=== PATIENT | female | born 1940 | race African-American/Black ===

== ENCOUNTER 2019-05-02 23:13 | Inpatient (IN) | payer MEDICARE ==
[~2019-05-02] VITALS: Ht 170.2 cm; Wt 59.0 kg
--- NOTE | 2019-05-02 23:55 | NUR ---
PT AMBULATED TO THE BATHROOM WITH A STEADY GAIT. PT IS TRYING TO GIVE A URINE SAMPLE. HAT WAS PLACED IN THE TOILET. FAMILY IS WITH THE PT.
--- NOTE | 2019-05-03 00:14 | NUR ---
SENIOR DATA SCIENTIST IS AT THE BEDSIDE FOR BLOOD DRAW. PT BECAME AGGRESSIVE. HILTON, GENIA AND MYSELF WERE AT THE BEDSIDE SUBDUING THE PT WHILE BLOOD DRAW WAS IN PROGRESS. PT BIT MY ARM, DID NOT BREAK THE SKIN BUT LEFT A BRUISE. PT CALMED DOWN AFTER THE INTIAL BUTTERFLY INSERTION.
[2019-05-03 00:18] LABS: BASOPHILS # (AUTO) 0.1 /CMM (0.0-0.2); BASOPHILS % (AUTO) 0.7 % (0.0-2.0); EOSINOPHILS % (AUTO) 1.6 % (0.0-6.0); HEMATOCRIT 46 % (33-45); HEMOGLOBIN 15.4 g/dL (11.5-14.8); LYMPHOCYTES # (AUTO) 3.2 /CMM (0.8-4.8); LYMPHOCYTES % (AUTO) 27.1 % (20.0-44.0); MEAN CORPUSCULAR HGB CONC 33 g/dl (31.0-36.0); MEAN CORPUSCULAR VOLUME 96 fL (82-100); MONOCYTES % (AUTO) 8.6 % (2.0-12.0); NEUTROPHILS # (AUTO) 7.3 /CMM (1.8-8.9); PLATELET COUNT (AUTO) 371 /CMM (150-450); RED BLOOD CELL COUNT(AUTO) 4.81 MIL/uL (4.0-5.2); WHITE BLOOD COUNT (AUTO) 11.8 K/uL (4.3-11.0)
--- NOTE | 2019-05-03 00:20 | NUR ---
CXR DONE AT THE BEDSIDE.
--- NOTE | 2019-05-03 00:22 | NUR ---
PT'S DAUGHTER IS AT THE BEDSIDE. PT APPEARS CALM.
[2019-05-03 00:31] LABS: APPEARANCE,URINE Slightly Cloudy (CLEAR); BILIRUBIN,URINE Negative (NEGATIVE); BLOOD, URINE Negative Ery/uL (NEGATIVE); COLOR,URINE Yellow (YELLOW); KETONES,URINE Trace (NEGATIVE); LEUKOCYTE ESTERASE ,URINE Trace (NEGATIVE); NITRITE, URINE Positive (NEGATIVE); PH,URINE 8.5 (5.0-8.0); PROTEIN,URINE Negative (NEGATIVE); UGLUCOSE Negative (NEGATIVE); UROBILINOGEN,URINE 0.2 EU/dL (0.2)
[2019-05-03 00:31] LABS: CALCIUM, SERUM 9.6 mg/dL (8.5-10.1); CARBON DIOXIDE 28 mmol/L (21-32); CHLORIDE 107 mmol/L (98-107); CREATININE 0.7 mg/dL (0.6-1.3); GLUCOSE 111 mg/dL (74-106); POTASSIUM 4.2 mmol/L (3.5-5.1); SODIUM SERUM 144 mmol/L (136-145); UREA NITROGEN, BLOOD 13 mg/dL (7-18)
[2019-05-03 00:37] LABS: ALANINE AMINOTRANSFERASE 17 U/L (12-78); ALBUMIN 3.7 g/dL (3.4-5.0); ALKALINE PHOSPHATASE 99 U/L (46-116); ASPARTATE AMINOTRANSFERASE 15 U/L (15-37); BILIRUBIN,DIRECT 0.1 mg/dL (0.0-0.2); BILIRUBIN,TOTAL 0.4 mg/dL (0.2-1.0); LIPASE 254 U/L (73-393); TOTAL PROTEIN, SERUM 7.6 g/dL (6.4-8.2)
--- NOTE | 2019-05-03 00:49 | NUR ---
DR VALVERDE IS SPEAKING TO THE PT'S DAUGHTER.
[2019-05-03 00:54] LABS: BACTERIA,URINE Many /HPF (None Seen); SQUAMOUS EPITHELIAL CELL,UR Few /HPF (None Seen)
[2019-05-03] MEDS ORDERED: CEFTRIAXONE 1 G VIAL ONE (00:54)
[2019-05-03] MEDS ORDERED: LIDOCAINE /MPF 1% VIAL 5 ML VIAL ONE (00:54)
[2019-05-03] MEDS ORDERED: CEFTRIAXONE 1 G VIAL IM ONE (01:00)
--- NOTE | 2019-05-03 01:06 | NUR ---
PT IS ON A HOLD OF 05/02/19 @0503
--- NOTE | 2019-05-03 01:09 | NUR ---
CALLING REPORT TO ROMY BOGGS RN.
--- NOTE | 2019-05-03 01:44 | NUR ---
GPS ADMISSION NOTE, RECEIVED PATIENT FROM ER / HOME. PATIENT ARRIVED ON THIS UNIT AT 0000 VIA STRETCHER WITH ER STAFF. PATIENT ADMITTED ON A 5150 HOLD FOR DTO. PER HOLD PATIENT WAS BROUGHT IN [facility] AFTER SHE WAS HITTING HER GRANDDAUGHTER . PATIENT HAS BEEN DENYING SI / HI AT THIS TIME, PATIENT WAS UNABLE TO CONTRACT FOR SAFETY AT THAT TIME. THE 5150 WAS REVIEWED AND THE DOCUMENTATION IN THE 5150 HOLD APPEARS TO REFLECT THE PRESENTATION OF THE PATIENT. UPON FACE TO FACE ASSESSMENT PATIENT IS NOTED TO BEING HYPERVERBAL, DISHEVELED, DISORGANIZED, DEMANDING,AGGRESSIVE AGITATED,AMBULATE WITH UNSTEADY GAIT AND NEEDS REDIRECTION. PATIENT IS CURRENTLY LYING IN BED AWAKE, HAS COMPLAINTS OF PAIN. OFFER THE PATIENT PAIN MEDICATION BUT PATIENT REFUSED THE PAIN MEDICATION SAID YOU GUYS WILL KILL ME WITH MEDICATIONS. PATIENT IS DISPLAYING NO S/S OF APPARENT DISTRESS. PATIENT BREATHING IS UNLABORED WITH EQUAL RISE AND FALL OF THE CHEST. PATIENT IS ALERT AND ORIENTATED X 3 ON ROOM AIR. PATIENT ASSISTED WITH TURING AND REPOSITIONING Q2HR AND PRN FOR COMFORT AND CIRCULATION. PATIENT HAS NO NEEDS AT THIS TIME. PATIENT DENIES SUICIDE IDEATIONS AND HOMICIDAL IDEATIONS AT THIS TIME. PATIENT REFUSED TO SIGNS ANY PAPER WORK AND THINKS THIS IS ALL A MISTAKE. AND SAID I DONT WANT TO STAY HERE PATIENT ADVISED OF HER HOLD AND PATIENT RIGHTS BOOKLET GIVEN. PATIENT IS UNDER THE PSYCHIATRIC CARE OF DR. MARTINES AND THE MEDICAL CARE OF DR THOMAS. PATIENT BELONGINGS WERE INVENTORIED AND CHECKED FOR CONTRABAND. ALL CONTRABAND REMOVED AND STORED IN PATIENT HALLWAY LOCKER. PATIENT ADVANCED DIRECTIVES PREFERENCE, IMMUNIZATIONS QUESTIONER, NECESSARY PAPERWORK COMPLETED. PATIENT SKIN ASSESSMENT COMPLETED. PATIENT ORIENTATED TO ROOM, FLOOR, AND STAFF WITH ALL QUESTIONS ANSWERED. PATIENT EDUCATED ON THE USE OF THE CALL LEUNG. PATIENT BED SIDE RAILS ARE UP X 2 FOR SAFETY. PATIENT BED IS LOCKED, LOW AND I WILL CONTINUE TO MONITOR THIS PATIENT Q 15 MIN WITH THE HELP OF STAFF TO MAINTAIN SAFETY.
--- NOTE | 2019-05-03 01:45 | NUR ---
GPS RN NOTE, PATIENT ARRIVED ON UNIT AND STUD UP OFF [facility] WHILE YELLING AND SCREAMING AT STAFF. PATIENT STATED, " MY LEFT SHOULDER IS IN PAIN AND I DON'T BELONG HEAR, I WANT TO SEE MY DOCTOR, YOUR NOT A DOCTOR JUST A NURSE ". PATIENT IS UNABLE TO FOLLOW COMMANDS AND IS HYPERVERBAL. ASSISTED PATIENT TO DINNING ROOM WITH THE HELP OF STAFF PACKERHEAD MACHINE OPERATOR TO DINNING AND ASSISTED TO MACIEJ CHAIR WITH OUT TABLE. PATIENT ABLE TO CALM DOWN AFTER 15MIN OF EXPLAINING HOLD AND WITH ORIENTATION TO SELF, STAFF, AND FLOOR. PATIENT ASSISTED TO ROOM 215 -1 WITH THE HELP OF 2 PACKERHEAD MACHINE OPERATOR'S AND ADMITTING NURSE. WILL CONTINUE TO MONITOR THIS PATIENT.
[2019-05-03] MEDS ORDERED: MAGNESIUM HYDROXIDE 30 ML UDC PO PRN (02:00)
[2019-05-03] MEDS ORDERED: TEMAZEPAM 7.5 MG CAPSULE PO PRN (02:00)
[2019-05-03] MEDS ORDERED: LORAZEPAM 0.5 MG TABLET PO PRN (02:00)
[2019-05-03] MEDS ORDERED: ACETAMINOPHEN 325 MG TABLET PO PRN (02:00)
[2019-05-03] MEDS ORDERED: MAG HYDROX/AL HYDROX/SIMETH 30 ML UDC PO PRN (02:00)
[2019-05-03] MEDS: CEPHALEXIN MONOHYDRATE 500 MG CAPSULE PO SCH ×2 (13:57→20:02)
[2019-05-03 16:00] VITALS: BP 126/94
--- NOTE | 2019-05-03 16:25 | NUR ---
PT REFUSED BLOOD DRAW, LAB CAME THREE TIMES BUT PT STATED THAT ITS AGAINST MY ANABAPTISM TO DRAW BLOOD.PT SPEND TIME IN HIS ROOM NO INTREACTION WITH OTHER PEERS
--- NOTE | 2019-05-03 16:30 | NUR ---
NURSE NOTE PT REFUSED CT SCAN STATED THAT I DONT WANT TO DO IT
[2019-05-03] MEDS: QUETIAPINE FUMARATE 25 MG TABLET PO SCH (17:00)
--- NOTE | 2019-05-03 17:10 | NUR ---
NURSE NOTED PT REFUSED CT SCAN
[2019-05-03] MEDS: DIVALPROEX SODIUM 250 MG TABLET.DR PO SCH (20:02)
[2019-05-03 20:13] VITALS: BP 173/97
[2019-05-03] MEDS ORDERED: QUETIAPINE FUMARATE 25 MG TABLET PO SCH ×3 (20:30→22:00)
[2019-05-04 07:35] LABS: CHOLESTEROL 221 mg/dL (<200); HDL CHOLESTEROL 66 mg/dL (40-60); LDL 144 mg/dL (0-99); TRIGLYCERIDES 48 mg/dL (30-150)
[2019-05-04 08:00] VITALS: BP 120/80
[2019-05-04] MEDS: CEPHALEXIN MONOHYDRATE 500 MG CAPSULE PO SCH ×3 (08:24→21:00)
[2019-05-04] MEDS: DIVALPROEX SODIUM 250 MG TABLET.DR PO SCH ×2 (08:24→21:00)
[2019-05-04] MEDS: QUETIAPINE FUMARATE 25 MG TABLET PO SCH ×3 (08:25→21:55)
--- NOTE | 2019-05-04 10:37 | NUR ---
SW received a call from pts daughter Loli [phone] expressing concerns with the medication psychiatrist has ordered for pt. 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 Daughter then stated that pt should not be taking Seroquel and Depakote as pt is not Bipolar or manic. SW explained that psychiatrist orders medication based on how pt is presenting and also informed her that psychiatrist has ordered a neurological consultation to rule out Gilberto's Disease. SW informed her that pt is currently refusing to take medication and also is refusing to take medication for UTI. Daughter is aware and stated that she wishes to speak with psychiatrist regarding pts treatment and medication. SW informed her that she would inform psychiatrist and have him give her a call. Daughter agreed. Daughter also stated that she wishes to take pt home to live with her once stable for discharge.
--- NOTE | 2019-05-04 11:15 | NUR ---
INITIAL DISCHARGE PLAN: Per pts daughter Loli [phone] pt will return home to live with her [address] [place] [address]. SW will help form a safe and proper discharge in collaboration with .
--- NOTE | 2019-05-04 11:19 | NUR ---
pt refuse ct scan. dr. chandni church.
[2019-05-04 16:00] VITALS: BP 141/98
--- NOTE | 2019-05-04 16:00 | NUR ---
RN-CO: Patient was seen and examined by Magy CASTREJON ( neuro), spoke to patient's family.
--- NOTE | 2019-05-04 16:21 | NUR ---
MARYLU met with pts daughter Loli [phone] on this present day. Daughter stated she met with Dr. Sheppard on this present day also and discussed pts treatment and medications. MARYLU informed her that Dr. Sheppard has ordered discharge for pt for Thursday05/05/19. Daughter agreed with discharge and stated she will be picking pt up at 11:00am.
--- NOTE | 2019-05-04 18:21 | NUR ---
pt usually refuse to take medication. she only takes medication when family is around.
[2019-05-04 19:55] VITALS: BP 135/90
--- NOTE | 2019-05-04 22:30 | NUR ---
GPS-RN PATIENT REFUSED ALL HER SCHEDULED NIGHT MEDS. DESPITE OF EDUCATION THE RISKS AND BENEFITS PATIENT STILL REFUSED.
[2019-05-05 08:00] VITALS: BP 125/75
[2019-05-05] MEDS: DIVALPROEX SODIUM 250 MG TABLET.DR PO SCH ×3 (08:15→21:00)
[2019-05-05] MEDS: QUETIAPINE FUMARATE 25 MG TABLET PO SCH ×4 (08:15→22:00)
[2019-05-05] MEDS: CEPHALEXIN MONOHYDRATE 500 MG CAPSULE PO SCH ×3 (08:15→21:00)
[2019-05-05 16:00] VITALS: BP 127/69
--- NOTE | 2019-05-05 17:48 | NUR ---
GPS/RN NOTES MEDICATION SEROQUEL WAS NOT GIVEN DUE TO PATIENT REFUSING. EXPLAINED RISK AND BENEFITS X3. STILL REFUSED X3. PATIENT STATED " I WILL NOT TAKE ANY MEDICATION RIGHT NOW." PATIENT REMAINS IN STABLE CONDITION. WILL CONTINUE TO MONITOR CLOSELY.
--- NOTE | 2019-05-05 18:28 | NUR ---
GPS/RN CLOSING NOTES PATIENT IN BED AWAKE, ALERT AND ABLE TO MAKE NEEDS KNOWN. NO PAIN OR ACUTE DISTRESS AT THIS TIME. RESPIRATION EVEN AND UNLABORED. SKIN IS DRY WARM TO TOUCH. PATIENT ABLE TO TOLERATE MEALS WELL. PATIENT REFUSED AFTERNOON DOSE OF SEROQUEL. NO EPISODES OF BEHAVIORAL PROBLEMS. NO SI/HI. CONTINUES TO REMAIN IN THE ROOM. PATIENT REMAINS IN STABLE CONDITION THROUGHOUT. PROVIDED SAFETY AND COMFORT. ALL NEEDS ANTICIPATED. KEPT CLEAN AND DRY. CALL LIGHT WITHIN REACHED. BED LOCKED AND IN LOWEST POSITION. WILL CONTINUE TO MONITOR. ENDORSED TO PM NURSE FOR NAOMI.
[2019-05-05 20:00] VITALS: BP 131/69
--- NOTE | 2019-05-05 21:05 | NUR ---
DIVALPROEX 250 MG TAB PO AND CEPHALEXIN 500 MG CAP PO BOTH REFUSED, PATIENT STATED, " I DON'T LIKE IT." REPORT IN THE MORNING SAID PATIENT TAKES MEDICATIONS WHEN FAMILY IS PRESENT.
[2019-05-06 08:00] VITALS: BP 99/53
[2019-05-06] MEDS: QUETIAPINE FUMARATE 25 MG TABLET PO SCH (08:39)
[2019-05-06] MEDS: DIVALPROEX SODIUM 250 MG TABLET.DR PO SCH (08:39)
[2019-05-06] MEDS: CEPHALEXIN MONOHYDRATE 500 MG CAPSULE PO SCH (08:39)
--- NOTE | 2019-05-06 08:39 | NUR ---
RN NOTE: PATIENT REFUSED HER 0900 MEDICATIONS. I EXPLAINED THE IMPORTANCE OF HER MEDICATIONS. SHE ASKED ME TO LEAVE THE MEDICATIONS AT BEDSIDE AND I INFORMED HER THAT I COULDN'T DO THAT, SHE WOULD NEED TO TAKE THE MEDICATIONS IN FRONT OF ME. 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 AFTER SEVERAL ATTEMPTS SHE TOLD ME TO TAKE THE MEDICATION AND GET THE HELL OUT OF HERE. PATIENT REFUSED SEROQUEL, KEFLEX AND DEPAKOTE.
--- NOTE | 2019-05-06 09:53 | NUR ---
DISCHARGE NOTE: Pt will be discharging at 11:00am via private vehicle home [address] [place] [address]. Pts daughter Loli [phone] will be picking pt up and transporting home. Pts mood is euthymic with congruent affect. Pt denied visual/auditory hallucinations and denied suicidal/homicidal ideation. Pt will follow up with [facility] Address: [address], [place] [address] on Thursday05/09/19 for an intake before 5:00pm. SW faxed clinical information to . Pt was also given a referral to [facility] Address: [address] [place] [address] . The multidisciplinary exitcare form was done, printed, signed, and given to the patient.
--- NOTE | 2019-05-06 11:36 | NUR ---
PANEL GLUER NOTE: PATIENT IS A 78 YEAR OLD FEMALE BEING DISCHARGED HOME TO [id number] [place] [id number]. PATIENT IS IN STABLE CONDITION. NO ACUTE DISTRESS NOTED. COOPERATIVE WITH TREATMENT PLANS. PATIENT DENIES SI/HI VAH AT THE TIME OF DISCHARGE. BEHAVIOR HAS IMPROVED, PSYCHIATRIC TREATMENT PLANS MET, MEDICAL TREATMENT PLANS DEFERRED FOR CONTINUAL MONITORING. EDUCATED PATIENT AND DAUGHTER ABOUT AFTERCARE; COPY PROVIDED. RETURNED PERSONAL BELONGINGS TO PATIENT. SKIN CHECK DONE. MEDICATIONS RECONCILED WITH DR ELI AND DR DEJESUS WITH ORDERS TO DC PSYCHIATRIC HOLD. DISCHARGE PAPERWORK COMPLETE, PATIENT UNABLE TO SIGN DUE TO CONDITION. DAUGHTER NEHEMIAH ARRIVED TO BELL NECK HAMMERER PATIENT. DISCHARGE PACKET GIVEN TO DAUGHTER WHICH INCLUDES FOLLOW UPS WITH PSYCHIATRY ([facility]) LOCATED AT [address] [facility] [id number] AND [employer] ([facility]) LOCATED AT [address] [address] IN 1 WEEK. PATIENT LEFT [facility] GPS AT 11:25.
== END 2019-05-06 11:25 | disposition home or self-care (01) | DRG 885 ==
LOC: ER 23:15 → GPS 05-03 01:14
PROVIDERS: ADMIT Psychiatry & Neurology Psychiatry; ATTEND Internal Medicine
DX: F31.9 Bipolar disorder, unspecified (principal); G10 Huntington's disease; N39.0 Urinary tract infection, site not specified; F29 Unspecified psychosis not due to a substance or known physiological condition; F41.9 Anxiety disorder, unspecified
CPT/HCPCS: 36415; 70450-TC; 71045-TC; 80048-TC; 80061-TC; 80076-TC; 81000-TC; 83690-TC; 84484-TC; 85025-TC; 87081-TC; 87086-TC; 87186-TC; J0696; J3490